=== PATIENT | female | born 1990 | race Caucasian/White ===

== ENCOUNTER 2016-05-03 18:29 | Emergency (ER) | payer BC ==
[2016-05-03 18:46] VITALS: BP 115/69; PULSE 101; RESP 18; TEMP 98.3
[2016-05-03] MEDS ORDERED: DIPH,PERTUS(ACELL)TETVAC-LF 0.5 ML VIAL IM ONE (19:00)
--- NOTE | 2016-05-03 19:05 | ED ---
General Adult HPI - General Chief complaint: Skin/Abscess/Foreign Body Stated complaint: wood in foot Time Seen by Provider: 05/03/16 18:50 Source: patient, RN notes reviewed Mode of arrival: wheelchair - History of Present Illness Initial comments: Patient is a 26-year-old female presenting to the with a chief complaint of a wooden splinter in her left foot. Patient reports that she was walking in her bathroom and the wood floor is not sealed and a piece got lodged into her plantar aspect of her foot. She states that this occured possibly half hour ago. She states she is not able to ambulate over her foot due to the wood piece sticking out and causing pain. She does not know the status of her tetanus vaccination. Patient sates that she does have full range of motion of her toes and denies any peripheral paresthesias.Patient denies any recent fever , chills, shortness of breath, chest pain, back pain, abdominal pain, nausea vomiting, numbness or tingling, dysuria or hematuria, constipation or diarrhea, headaches or visual changes, or any other current symptoms - Related Data Previous Rx's Medication Instructions Recorded Levofloxacin [Levaquin] 500 mg PO DAILY #10 tab 05/03/16 Allergies Allergy/AdvReac Type Severity Reaction Status Date / Time No Known Allergies Allergy Verified 05/03/16 18:46 Review of Systems ROS Statement: Those systems with pertinent positive or pertinent negative responses have been documented in the HPI. ROS Other: All systems not noted in ROS Statement are negative. Past Medical History Past Medical History: No Reported History History of Any Multi-Drug Resistant Organisms: None Reported Past Surgical History: No Surgical Hx Reported Past Psychological History: No Psychological Hx Reported Smoking Status: Never smoker Past Alcohol Use History: None Reported Past Drug Use History: None Reported General Exam - General Exam Comments Initial Comments: Patient is a pleasant 26-year-old female. She does not appear to be in any acute distress. General appearance: alert, in no apparent distress Head exam: Present: atraumatic, normocephalic, normal inspection Eye exam: Present: normal appearance, PERRL, EOMI. Absent: scleral icterus, conjunctival injection, periorbital swelling ENT exam: Present: normal exam, mucous membranes moist, TM's normal bilaterally , normal external ear exam Neck exam: Present: normal inspection. Absent: tenderness, meningismus, lymphadenopathy Respiratory exam: Present: normal lung sounds bilaterally. Absent: respiratory distress, wheezes, rales, rhonchi, stridor Cardiovascular Exam: Present: regular rate, normal rhythm, normal heart sounds. Absent: systolic murmur, diastolic murmur, rubs, gallop, clicks GI/Abdominal exam: Present: soft, normal bowel sounds. Absent: distended, tenderness, guarding, rebound, rigid Left Knee exam: Present: normal inspection, full ROM Lower Leg exam: Present: normal inspection, full ROM Ankle exam: Present: normal inspection, full ROM Foot/Toe exam: Present: full ROM, laceration (Evidence of the 0.5 cm thick 2 cm long wooden foreign body in the foot.). Absent: normal inspection (Evidence of a 2 cm foreign body piece avoid sticking out of the palmar aspect of the foot.) Neurovascular tendon exam: Present: no vascular compromise Gait: observed and normal Back exam: Present: normal inspection Neurological exam: Present: alert, oriented X3, CN II-XII intact Psychiatric exam: Present: normal affect, normal mood Skin exam: Present: warm, dry, intact, normal color. Absent: rash Course Vital Signs 05/03/16 18:41 Temperature 98.3 F Pulse Rate 101 H Respiratory 18 Rate Blood Pressure 115/69 O2 Sat by Pulse 98 Oximetry Procedures - Laceration Laceration #1 Site: foot (Evidence of a 0.5 cm wide 2 cm long the foreign body piece of wood sticking from the palmar aspect of the left foot.) Size (cm): 1 Description: linear Depth: simple, single layer Anesthetic Used: benzocaine 0.25% Anesthesia Technique: local infiltration Amount (mls): 4 Pre-repair: wound explored, irrigated extensively (1 L of normal saline was applied to the foot.) Type of Sutures: other (The foreign body was removed by applying pressure and it was removed in its entirety. No evidence of wood pieces within the foot. We will leave the wound open to prevent infection.) Size of Sutures: other Patient Tolerated Procedure: well, no complications Medical Decision Making - Medical Decision Making Patient is 26-year-old female with a wooden foreign body in her foot. Patient states is from her wood floor at home and she stubbed her foot into the edge of it. Patient was given local anesthesia around the foreign body and the splinter was removed in entirety. Wound was explored and irrigated extensively afterwards and no evidence of further wood pieces and the foot. Patient will be started on Levaquin for infection prevention and instructed to do warm Epson salt soaks. Patient understands treatment plan will comply. Return parameters were discussed. Disposition Clinical Impression: Foreign body in foot Disposition: HOME SELF-CARE Condition: Good Instructions: Puncture Wound (ED) Additional Instructions: Patient instructed to monitor for any signs of infection. Patient has to complete entire antibiotic prescription for the next 10 days. Follow-up with primary care provider in one to 2 days if any alarming signs or symptoms occur. Or return to the [facility] if any signs of infection or increased swelling occurs to the foot. Prescriptions: Levofloxacin [Levaquin] 500 mg PO DAILY #10 tab Referrals: Felice Sauceda MD [Primary Care Provider] - 1-2 days Time of Disposition: 19:51
--- NOTE | 2016-05-03 19:12 | XR ---
EXAMINATION TYPE: XR foot complete LT DATE OF EXAM: 05/03/2016 7:05 PM COMPARISON: NONE HISTORY: Foot pain. Wood foreign body. TECHNIQUE: 3 views FINDINGS: I see no fracture nor dislocation. Joint spaces are normal. Metatarsals are intact. I see n o radiopaque foreign body. IMPRESSION: Normal exam. No foreign body seen. A piece of wood is probably not visible on regular x-r ay.
[2016-05-03] MEDS ORDERED: LEVOFLOXACIN 500 MG TAB PO STA (19:50)
== END 2016-05-03 20:08 | disposition home or self-care (01) ==
LOC: EC 18:29
DX: S91.322A Laceration with foreign body, left foot, initial encounter (principal); W45.8XXA Other foreign body or object entering through skin, initial encounter; Z23 Encounter for immunization
CPT/HCPCS: 90471; 90715; 99283

== ENCOUNTER → 2017-01-16 | Outpatient (CLI) | payer BC ==
[2017-01-16 16:23] LABS: CHCM 34.1; HCT 41.9 % (34.0-46.0); HDW 2.23; MCH 31.5 pg (25.0-35.0); MCHC 33.5 g/dL (31.0-37.0); MCV 94.1 fL (80.0-100.0); Mean Platelet Volume 8.8; RBC 4.45 m/uL (3.80-5.40); RDW 12.7 % (11.5-15.5)
[2017-01-16 16:31] LABS: Glucose 87 mg/dL (74-99); Non-African American GFR(MDRD) >60 (>60 ml/min/1.73 sqM)
[2017-01-16 17:00] LABS: Hepatitis B Surface Ag Index 0.04
[2017-01-17 01:00] LABS: Treponemal Ab Non-Reactive (Non-Reactive)
[2017-01-17 05:48] LABS: Toxoplasma Antibody (IgG) <3.0 IU/mL (<7.2)
== END | disposition home or self-care (01) ==
LOC: LABWHC1 15:52
PROVIDERS: ATTEND Obstetrics & Gynecology
DX: Z34.01 Encounter for supervision of normal first pregnancy, first trimester (principal); Z3A.00 Weeks of gestation of pregnancy not specified
CPT/HCPCS: 36415; 82565; 82947; 85027; 86762; 86777; 86778; 86780; 86850; 86900; 86901; 87340

== ENCOUNTER → 2017-05-28 | Outpatient (CLI) | payer BC ==
[2017-05-28 11:12] LABS: HGB 12.6 gm/dL (11.4-16.0); MCH 31.4 pg (25.0-35.0); MCV 95.1 fL (80.0-100.0); Mean Platelet Volume 8.1; Platelet Count 214 k/uL (150-450); WBC 11.4 k/uL (3.8-10.6)
== END | disposition home or self-care (01) ==
LOC: LABWHC1 09:15
PROVIDERS: ATTEND Obstetrics & Gynecology
DX: Z34.02 Encounter for supervision of normal first pregnancy, second trimester (principal); Z3A.00 Weeks of gestation of pregnancy not specified
CPT/HCPCS: 36415; 82950; 85027

== ENCOUNTER 2017-09-08 11:35 | Inpatient (IN) | payer BC ==
[2017-09-11] MEDS ORDERED: CARBOPROST TROMETHAMINE 250 MCG/ML 1 ML AMP IM PRN (06:12)
[2017-09-11] MEDS ORDERED: TERBUTALINE 1 MG/ML VIAL SQ PRN (06:12)
[2017-09-11] MEDS ORDERED: LIDOCAINE 1% (PF) 10 MG/ML (30 ML SDV) SQ PRN (06:12)
[2017-09-11] MEDS ORDERED: AMPICILLIN 2,000 MG in SODIUM CHLORIDE 0.9% 100 ML IVPB STA (06:12)
[2017-09-11] MEDS ORDERED: OXYTOCIN 10 UNIT/ML 1 ML VIAL IM PRN (06:12)
[2017-09-11] MEDS ORDERED: METHYLERGONOVINE 0.2 MG/ML 1 ML AMP IM PRN (06:12)
[2017-09-11] MEDS ORDERED: OXYTOCIN 20 UNITS/1000 ML NS 1,000 ML IV SCH (06:12)
--- NOTE | 2017-09-11 06:19 | P.HPOB ---
History of Present Illness H&P Date: 09/11/17 Chief Complaint: Patient is presenting for postdates induction This patient is a pleasant 27-year-old 1 para 0 female estimated date of confinement 09/08/2017 estimated gestational age 40-3/7 weeks who presents to labor and delivery for requested induction of labor. Patient's care has been uncomplicated. Patient this time has requested induction of labor. Review of Systems Gastrointestinal: Reports heartburn Genitourinary: Reports Menstruation: Reports amenorrhea Past Medical History Past Medical History: No Reported History History of Any Multi-Drug Resistant Organisms: None Reported Past Surgical History: No Surgical Hx Reported Past Psychological History: No Psychological Hx Reported Smoking Status: Never smoker Past Alcohol Use History: None Reported Past Drug Use History: None Reported Medications and Allergies Home Medications Medication Instructions Recorded Confirmed Type Pnv,Calcium 72/Iron/Folic Acid 1 tab PO DAILY 09/11/17 09/11/17 History [ Plus Tablet] Allergies Allergy/AdvReac Type Severity Reaction Status Date / Time No Known Allergies Allergy Verified 09/11/17 06:10 Exam - Vital Signs Vital signs: Intake and Output 09/10/17 09/10/17 09/11/17 14:59 22:59 06:59 Other: Weight 63.049 kg - OBG Physical Exam Abdomen: bowel sounds normal, no diffuse tenderness, no bruit present, no guarding noted, no hepatomegaly, no splenomegaly, no mass Vulva: both: normal Vagina: normal moisture, no discharge Cervix: Cervix in the office was 2-3 cm dilated. Cervix: no lesion, no discharge Uterus: enlarged (Fundal height the office is 38 cm) Results blood work shows she is A positive, rubella immune, RPR nonreactive, hepatitis B negative, Glucola was normal, ultrasounds shows normal anatomy, group B strep was positive. Assessment and Plan Assessment: This is a pleasant 27-year-old 1 para 0 female 40-3/7 weeks gestation who is admitted to labor and delivery for requested induction of labor. Plan is induction of labor per protocol and anticipate vaginal delivery. Patient does have a positive group B strep culture and therefore will be given IV antibiotics. (1) Post-dates Current Visit: Yes Status: Acute Code(s): O48.0 - POST-TERM SNOMED Code(s): 35884271 (2) Elective induction of labor planned Current Visit: Yes Status: Acute Code(s): QAD1003 - SNOMED Code(s): 396943945 (3) Group B streptococcal carriage complicating Current Visit: Yes Status: Acute Code(s): O99.820 - STREPTOCOCCUS B CARRIER STATE COMPLICATING SNOMED Code(s): 135137660373603
[2017-09-11 06:30] LABS: HCT 39.3 % (34.0-46.0); HGB 13.3 gm/dL (11.4-16.0); MCH 31.3 pg (25.0-35.0); MCHC 33.9 g/dL (31.0-37.0); MCV 92.3 fL (80.0-100.0); Mean Platelet Volume 10.3; Platelet Count 191 k/uL (150-450); RBC 4.26 m/uL (3.80-5.40); RDW 13.1 % (11.5-15.5); WBC 10.9 k/uL (3.8-10.6)
[2017-09-11 06:39] VITALS: BMI 24.6
[2017-09-11] MEDS: LACTATED RINGERS 1,000 ML IV SCH ×2 (06:39→09:47)
[2017-09-11 06:55] LABS: Eosinophils # (M) 0.11 k/uL (0-0.7); Large Platelets Present; Monocytes # (M) 0.55 k/uL (0-1.0); Neutrophils # (M) 7.85 k/uL (1.3-7.7); Neutrophils % (M) 72 %; Nucleated Red Blood Cells 0 /100 WBC (0-0); Total Cells Counted 100
[2017-09-11] MEDS: AMPICILLIN 1,000 MG in SODIUM CHLORIDE 0.9% 50 ML IVPB SCH ×3 (07:06→15:50)
[2017-09-11] MEDS ORDERED: fentaNYL (PF) 50 MCG/ML 5 ML AMP ONE (09:18)
[2017-09-11] MEDS ORDERED: BUPIVACAINE (PF) 0.25% 30 ML VIAL ONE (09:18)
[2017-09-11] MEDS ORDERED: SODIUM CHLORIDE 0.9% 100 ML BAG ONE (09:18)
[2017-09-11] MEDS ORDERED: BUPIVACAINE (PF) 0.5% 12.5 ML, fentaNYL (PF) 200 MCG in SODIUM CHLORIDE 0.9% 83.5 ML EPIDURAL ONE (09:56)
[2017-09-11] MEDS ORDERED: WITCH HAZEL 1 EACH MED..PAD TOPICAL PRN (15:18)
[2017-09-11] MEDS ORDERED: HYDROCORTISONE 2.5% RECTAL CREAM 30 GM TUBE RECTAL PRN (15:18)
[2017-09-11] MEDS ORDERED: ZOLPIDEM 5 MG TAB PO PRN (15:18)
[2017-09-11] MEDS ORDERED: diphenhydrAMINE 25 MG CAP PO PRN (15:18)
[2017-09-11] MEDS ORDERED: diphenhydrAMINE 50 MG/ML 1 ML VIAL IVP PRN (15:18)
[2017-09-11] MEDS ORDERED: SIMETHICONE 80 MG CHEWABLE PO PRN (15:18)
[2017-09-11] MEDS ORDERED: LANOLIN CREAM 5 GM TUBE TOPICAL PRN (15:18)
[2017-09-11] MEDS ORDERED: BENZOCAINE/MENTHOL SPRAY 1 GM/SPRAY AEROSOL TOPICAL PRN (15:18)
[2017-09-11] MEDS ORDERED: BISACODYL 10 MG SUPP RECTAL PRN (15:18)
[2017-09-11] MEDS ORDERED: ACETAMINOPHEN TAB 325 MG TAB PO PRN (15:18)
[2017-09-11] MEDS: SENNOSIDES-DOCUSATE SODIUM 1 EACH TAB PO SCH ×2 (15:44→18:38)
--- NOTE | 2017-09-11 17:15 | P.PROBDLV ---
Vaginal Delivery Note - . Vaginal Delivery Note: Normal vaginal delivery viable male infant Apgars 9 and 9 delivery time is 1451 hrs. Please see dictated H&P for intimate details of this patient's admission. Brief summary this is a pleasant 27-year-old 1 para 0 female 40-3/7 weeks gestation who is admitted to labor and delivery for requested induction of labor. Patient had antibiotics given for positive group B strep culture. She has artificial rupture membranes at 3 cm dilated for clear fluid. Labor is induced with Pitocin and labor progresses normally. Patient does get an epidural for pain control. Patient's labor progresses and she pushes for approximately 1 hour and 40 minutes. At this time she does develop some mild tachycardia and maternal effort is quite diminished and for this reason she's I infiltrate the posterior perineum and a second-degree midline episiotomy is made. This facilitates delivery of the head. Mouth and nares are bulb suctioned. Is no evidence of a nuchal cord. With gentle downward traction we then have deliver the anterior and posterior shoulder and rest this infant's body. This is a vigorous viable male Apgars are 9 and 9 delivery time is 1451 hrs. After delivery of the the infant is late on the mother's abdomen and after the cord is done pulsating is doubly clamped and cut. It appears to be trivascular. The placenta is then spontaneously delivered intact. Estimated blood loss is 150 mL. Inspection of the perineum shows a second-degree laceration which is repaired with 3-0 Vicryl usual fashion. Excellent reapproximation is noted. All counts are correct 3. There are no complications. Infant and mother are stable and birthing room.
[2017-09-11] MEDS: IBUPROFEN 600 MG TAB PO PRN (18:37)
[2017-09-11 20:29] VITALS: RESP 16
[2017-09-12 00:11] VITALS: PULSE 59
--- NOTE | 2017-09-12 06:50 | P.PNOBGVD ---
Subjective - Subjective Patient reports: Reports appetite normal, Reports voiding normally, Reports pain well controlled, Reports ambulating normally : doing well Objective - Latest Vital Signs Latest vital signs: Vital Signs Temp Pulse Resp BP Pulse Ox 09/12/17 00:00 98.4 F 59 L 16 124/75 09/11/17 20:00 98.6 F 58 L 16 116/75 09/11/17 17:07 96.6 F L 75 18 130/82 98 09/11/17 16:37 52 L 17 126/75 09/11/17 16:07 72 18 142/83 09/11/17 15:52 67 18 129/78 09/11/17 15:37 70 17 132/73 09/11/17 15:22 70 16 132/73 09/11/17 15:07 96.6 F L 75 18 118/67 98 Intake and Output 09/11/17 09/11/17 09/12/17 14:59 22:59 06:59 Intake Total 33.45 Output Total 150 Balance -150 33.45 Intake: Intake, IV Titration 33.45 Amount Oxytocin 20 Units/1000 ml 33.45 Ns 1,000 ml @ 1 MILLIUNIT/MIN 3 mls/hr IV .Q24H [facility] Rx#:[id number] Output: Urine 150 Other: # Voids 1 2 - Exam Lungs: bilateral: normal Chest: Normal S1, Normal S2 Extremities: Present: normal Abdomen: Present: normal appearance, soft Uterus: Present: normal, firm - Labs Labs: Abnormal Lab Results - Last 24 Hours (Table) 09/11/17 Range/Units 06:20 Neutrophils # (Manual) 7.85 H (1.3-7.7) k/uL Assessment and Plan Assessment: Patient is resting without complaints. This is day #1. Patient wishes to go home later today. Vital signs are stable she's afebrile. Uterus is firm nontender she's having normal lochia. My impression this is a normal course. Plan is to continue routine care and discharge home later today. (1) Post-dates Current Visit: Yes Status: Acute Code(s): O48.0 - POST-TERM SNOMED Code(s): 89595243 (2) Elective induction of labor planned Current Visit: Yes Status: Acute Code(s): PSG3088 - SNOMED Code(s): 267340882 (3) Group B streptococcal carriage complicating Current Visit: Yes Status: Acute Code(s): O99.820 - STREPTOCOCCUS B CARRIER STATE COMPLICATING SNOMED Code(s): 651278671300664
--- NOTE | 2017-09-12 06:54 | P.DS ---
Providers Date of admission: 09/11/17 06:00 Expected date of discharge: 09/12/17 Attending physician: Fletcher Escalante Primary care physician: Stated None - Discharge Diagnosis(es) (1) Post-dates Current Visit: Yes Status: Acute (2) Elective induction of labor planned Current Visit: Yes Status: Acute (3) Group B streptococcal carriage complicating Current Visit: Yes Status: Acute Hospital Course: Please see dictated H&P for intimate details of this patient's admission. Brief summary this pleasant 27-year-old 1 para 0 female 40-3/7 weeks gestation admitted to labor and delivery for requested induction of labor. Patient goes on to have uncomplicated induction of labor vaginal delivery viable male . Please see dictated delivery note. day #1 patient wishes to go home. Patient's felt be stable for discharge home follow up with me in 6 weeks. Procedures: Induction of labor and normal vaginal delivery. Patient Condition at Discharge: Good Plan - Discharge Summary New Discharge Prescriptions: New Ibuprofen [Motrin] 600 mg PO Q6HR PRN #40 tab PRN Reason: Mild Pain Or Fever >= 100.5 No Action Pnv,Calcium 72/Iron/Folic Acid [ Plus Tablet] 1 tab PO DAILY Discharge Medication List Pnv,Calcium 72/Iron/Folic Acid [ Plus Tablet] 1 tab PO DAILY 09/11/17 [ History] Ibuprofen [Motrin] 600 mg PO Q6HR PRN #40 tab 09/12/17 [Rx] Follow up Appointment(s)/Referral(s): Fletcher Escalante MD [STAFF PHYSICIAN] - 10/29/17 8:45 am Patient Instructions/Handouts: Vaginal Delivery (DC) Activity/Diet/Wound Care/Special Instructions: No intercourse or anything per vagina for 6 weeks. Please call if any fever, chills, excessive vaginal bleeding, and/or abdominal pain. Discharge Disposition: HOME SELF-CARE
[2017-09-12] MEDS: IBUPROFEN 600 MG TAB PO PRN ×2 (08:53→14:57)
[2017-09-12] MEDS: SENNOSIDES-DOCUSATE SODIUM 1 EACH TAB PO SCH (08:53)
[2017-09-12 09:08] VITALS: BP 116/76; TEMP 98.5
== END 2017-09-12 15:45 | disposition home or self-care (01) | DRG 775 ==
LOC: 4FBP 09-11 06:00
PROVIDERS: ADMIT Obstetrics & Gynecology; ATTEND Obstetrics & Gynecology
PROC: 3E033VJ Introduction of Other Hormone into Peripheral Vein, Percutaneous Approach (ICD-10-PCS; principal; 2017-09-11)
PROC: 10E0XZZ Delivery of Products of Conception, External Approach (ICD-10-PCS; principal; 2017-09-11)
PROC: 0W8NXZZ Division of Female Perineum, External Approach (ICD-10-PCS; principal; 2017-09-11)
PROC: 10907ZC Drainage of Amniotic Fluid, Therapeutic from Products of Conception, Via Natural or Artificial Opening (ICD-10-PCS; principal; 2017-09-11)
PROC: 3E0R3NZ Introduction of Analgesics, Hypnotics, Sedatives into Spinal Canal, Percutaneous Approach (ICD-10-PCS; principal; 2017-09-11)
PROC: 0KQM0ZZ Repair Perineum Muscle, Open Approach (ICD-10-PCS; principal; 2017-09-11)
PROC: 00HU33Z Insertion of Infusion Device into Spinal Canal, Percutaneous Approach (ICD-10-PCS; principal; 2017-09-11)
DX: O48.0 Post-term pregnancy (principal); Z37.0 Single live birth; O99.824 Streptococcus B carrier state complicating childbirth; O70.1 Second degree perineal laceration during delivery; O76 Abnormality in fetal heart rate and rhythm complicating labor and delivery; Z3A.40 40 weeks gestation of pregnancy
CPT/HCPCS: 85025; 88307

== ENCOUNTER → 2018-07-31 | Outpatient (CLI) | payer BC ==
[2018-07-31 14:55] LABS: HCT 41.1 % (34.0-46.0); HGB 13.8 gm/dL (11.4-16.0); MCH 30.3 pg (25.0-35.0); MCHC 33.6 g/dL (31.0-37.0); MCV 90.2 fL (80.0-100.0); Mean Platelet Volume 7.9; Platelet Count 322 k/uL (150-450); RBC 4.56 m/uL (3.80-5.40); RDW 13.1 % (11.5-15.5); WBC 10.7 k/uL (3.8-10.6)
[2018-08-01 07:40] LABS: Toxoplasma Antibody (IgG) <3.0 IU/mL (<7.2); Toxoplasma Antibody (IgM) <3.0 AU/mL (<8.0)
== END | disposition home or self-care (01) ==
LOC: LABWHC1 14:29
PROVIDERS: ATTEND Obstetrics & Gynecology
DX: Z34.80 Encounter for supervision of other normal pregnancy, unspecified trimester (principal)
CPT/HCPCS: 36415; 82565; 82947; 85027; 86762; 86777; 86778; 86780; 86850; 86900; 86901; 87340

== ENCOUNTER 2019-02-16 09:06 | Inpatient (IN) | payer BC ==
[2019-02-16] MEDS ORDERED: METHYLERGONOVINE 0.2 MG/ML 1 ML AMP IM PRN (09:09)
[2019-02-16] MEDS ORDERED: CARBOPROST TROMETHAMINE 250 MCG/ML 1 ML AMP IM PRN (09:09)
[2019-02-16] MEDS ORDERED: LIDOCAINE 0.5% (PF) 5 MG/ML (50 ML SDV) SQ PRN (09:09)
[2019-02-16] MEDS ORDERED: TERBUTALINE 1 MG/ML VIAL SQ PRN (09:09)
[2019-02-16] MEDS ORDERED: AMPICILLIN 2,000 MG in SODIUM CHLORIDE 0.9% 100 ML IVPB STA (09:09)
[2019-02-16] MEDS ORDERED: OXYTOCIN 10 UNIT/ML 1 ML VIAL IM PRN (09:09)
[2019-02-16] MEDS ORDERED: LACTATED RINGERS 1,000 ML IV SCH (09:15)
[2019-02-16 09:31] VITALS: BMI 24.6
[2019-02-16 09:35] LABS: Basophils # (A) 0.1 k/uL (0-0.2); Basophils % (A) 1 %; Eosinophils # (A) 0.1 k/uL (0-0.7); Eosinophils % (A) 1 %; HCT 42.5 % (34.0-46.0); HGB 14.4 gm/dL (11.4-16.0); Lymphocytes # (A) 1.5 k/uL (1.0-4.8); Lymphocytes % (A) 15 %; MCHC 33.9 g/dL (31.0-37.0); MCV 94.5 fL (80.0-100.0); Mean Platelet Volume 7.7; Monocytes # (A) 0.5 k/uL (0-1.0); Monocytes % (A) 5 %; Neutrophils # (A) 7.3 k/uL (1.3-7.7); Neutrophils % (A) 76 %; Platelet Count 248 k/uL (150-450); RDW 13.2 % (11.5-15.5); WBC 9.6 k/uL (3.8-10.6)
--- NOTE | 2019-02-16 13:17 | P.HPOB ---
History of Present Illness H&P Date: 02/16/19 Chief Complaint: Contractions This patient is a pleasant 28-year-old 2 para 1 female estimated date of confinement 02/16/2019 estimated gestational age 40-0/7 weeks who presented to my office this morning with complaints of contractions all night. The office patient's found to be 6 cm dilated completely effaced -1 station active labor. Patient's care has been uncomplicated. She does have a positive group B strep culture. Review of Systems Genitourinary: Reports Menstruation: Reports amenorrhea Past Medical History Past Medical History: No Reported History Additional Past Medical History / Comment(s): scoliosis History of Any Multi-Drug Resistant Organisms: None Reported Past Surgical History: No Surgical Hx Reported Past Anesthesia/Blood Transfusion Reactions: No Reported Reaction Past Psychological History: No Psychological Hx Reported Smoking Status: Never smoker Past Alcohol Use History: None Reported Past Drug Use History: None Reported - Past Family History Mother Additional Family Medical History / Comment(s): Patient states her mother has POTS? She states it is some kind of cardiac disease. Medications and Allergies Home Medications Medication Instructions Recorded Confirmed Type Pnv,Calcium 72/Iron/Folic Acid 1 tab PO DAILY 09/11/17 02/16/19 History [ Plus Tablet] Fish Oil/Dha/Epa [Fish Oil 1,200 1 each PO DAILY 02/16/19 02/16/19 History mg Fish Oil] L.acidoph,Paracasei, B.lactis 1 each PO DAILY 02/16/19 02/16/19 History [Probiotic] Allergies Allergy/AdvReac Type Severity Reaction Status Date / Time No Known Allergies Allergy Verified 02/16/19 09:08 Exam Vital Signs Temp Pulse Resp BP Pulse Ox 02/16/19 09:27 97.3 F L 94 16 133/87 99 Intake and Output 02/15/19 02/16/19 02/16/19 22:59 06:59 14:59 Other: Weight 63.049 kg - OBG Physical Exam Abdomen: bowel sounds normal, no diffuse tenderness, no bruit present, no guarding noted, no hepatomegaly, no splenomegaly, no mass Vulva: both: normal Vagina: normal moisture, no discharge Cervix: no lesion (Cervix is 6 cm dilated completely effaced -1 station), no discharge Uterus: enlarged (Fundal height is appropriate for gestational age) Results blood work shows she is A positive, rubella immune, RPR nonreactive, hepatitis B negative, ultrasounds have been normal, group B strep was positive, Glucola was normal. Result Diagrams: 02/16/19 09:15 Assessment and Plan Assessment: This is a pleasant 28-year-old 2 para 1 female 40-0/7 weeks gestation who is admitted to labor and delivery in active labor. Patient has a positive group B strep culture and therefore I gave her antibiotics for approximately 3 hours and will now proceed with artificial rupture membranes. Anticipate vaginal delivery. (1) 40 weeks gestation of Current Visit: Yes Status: Acute Code(s): Z3A.40 - 40 WEEKS GESTATION OF SNOMED Code(s): 03915640 (2) Group B streptococcal carriage complicating Current Visit: No Status: Acute Code(s): O99.820 - STREPTOCOCCUS B CARRIER STATE COMPLICATING SNOMED Code(s): 190038961618128 (3) Normal labor Current Visit: Yes Status: Acute Code(s): O80 - ENCOUNTER FOR FULL-TERM UNCOMPLICATED DELIVERY; Z37.9 - OUTCOME OF DELIVERY, UNSPECIFIED SNOMED Code(s): 13039328
[2019-02-16] MEDS ORDERED: AMPICILLIN 1,000 MG in SODIUM CHLORIDE 0.9% 50 ML IVPB SCH (14:00)
[2019-02-16] MEDS ORDERED: diphenhydrAMINE 25 MG CAP PO PRN (14:20)
[2019-02-16] MEDS ORDERED: OXYTOCIN 20 UNITS/1000 ML NS 1,000 ML IV SCH (14:20)
[2019-02-16] MEDS ORDERED: LANOLIN CREAM 5 GM TUBE TOPICAL PRN (14:20)
[2019-02-16] MEDS ORDERED: WITCH HAZEL 1 EACH MED..PAD TOPICAL PRN (14:20)
[2019-02-16] MEDS ORDERED: diphenhydrAMINE 50 MG/ML 1 ML VIAL IVP PRN (14:20)
[2019-02-16] MEDS ORDERED: HYDROCORTISONE 2.5% RECTAL CREAM 30 GM TUBE RECTAL PRN (14:20)
[2019-02-16] MEDS ORDERED: BISACODYL 10 MG SUPP RECTAL PRN (14:20)
[2019-02-16] MEDS ORDERED: SIMETHICONE 80 MG CHEWABLE PO PRN (14:20)
[2019-02-16] MEDS ORDERED: ZOLPIDEM 5 MG TAB PO PRN (14:20)
[2019-02-16] MEDS ORDERED: BENZOCAINE/MENTHOL SPRAY 1 GM/SPRAY AEROSOL TOPICAL PRN (14:20)
[2019-02-16] MEDS: IBUPROFEN 600 MG TAB PO PRN ×2 (14:37→21:54)
[2019-02-16] MEDS: ACETAMINOPHEN TAB 325 MG TAB PO PRN (15:58)
--- NOTE | 2019-02-16 18:39 | P.PROBDLV ---
Vaginal Delivery Note - . Vaginal Delivery Note: Normal spontaneous vaginal delivery viable female infant Apgars 9 and 9 delivery time is 1357 hrs. Please see dictated H&P for intimate details of this patient's admission. Brief summary this is a pleasant 29-year-old 2 para 1 female 40-0/7 weeks gestation who presented to my office this morning with complaints of contractions found to be 6 cm dilated in active labor. Patient positive group B strep therefore is given IV ampicillin and a proximally 3 hours later had artificial rupture membranes for clear fluid. Patient did not request anything for pain control. Labor progresses quickly thereafter and she gets to complete. Patient pushes the head to the perineum the posterior perineum was supported. We have controlled delivery of infant's head over the intact perineum. Mouth and nares are bulb suctioned. There is no evidence of a nuchal cord. With gentle downward traction we then have deliver the anterior and posterior shoulder and rest this 's body. This is a vigorous viable female Apgars are 9 and 9 delivery time is 1357 hrs. After delivery of the the umbilical cord after it is done pulsating is clamped and cut. It appears to be trivascular. The placenta is then spontaneously delivered intact estimated blood loss 100 mL. There is a first-degree laceration was repaired with 3-0 Vicryl usual fashion excellent reapproximation is noted. All counts are correct 3. There are no complications. Infant and mother stable delivery room.
[2019-02-16] MEDS: SENNOSIDES-DOCUSATE SODIUM 1 EACH TAB PO SCH (20:12)
[2019-02-17] MEDS: IBUPROFEN 600 MG TAB PO PRN ×2 (04:32→11:41)
--- NOTE | 2019-02-17 06:30 | P.PNOBGVD ---
Subjective - Subjective Patient reports: Reports appetite normal, Reports voiding normally, Reports pain well controlled, Reports ambulating normally : doing well Objective - Latest Vital Signs Latest vital signs: Vital Signs Temp Pulse Resp BP Pulse Ox 02/16/19 23:35 98.2 F 57 L 12 86/54 98 02/16/19 20:00 97.8 F 80 12 110/73 97 02/16/19 16:19 97.7 F 70 18 110/73 02/16/19 15:49 97.3 F L 67 18 110/62 02/16/19 15:19 66 18 103/56 02/16/19 15:04 70 18 141/72 02/16/19 14:49 97.4 F L 62 18 108/67 02/16/19 14:34 76 18 106/72 02/16/19 14:19 97.0 F L 71 18 109/63 02/16/19 09:27 97.3 F L 94 16 133/87 99 Intake and Output 02/16/19 02/16/19 02/17/19 14:59 22:59 06:59 Intake Total 600 Balance 600 Intake: Intake, IV Titration 600 Amount Ampicillin 2,000 mg In 100 Sodium Chloride 0.9% 100 ml @ 200 mls/hr IVPB ONCE STA Rx#:[id number] Lactated Ringers 1,000 ml 500 @ 125 mls/hr IV .Q8H [facility] Rx#:[id number] Other: # Voids 2 2 1 Weight 63.049 kg - Exam Lungs: bilateral: normal Chest: Normal S1, Normal S2 Extremities: Present: normal Abdomen: Present: normal appearance, soft Uterus: Present: normal, firm Assessment and Plan Assessment: day #1. Patient is resting without complaints wishes to go home. Vital signs are stable she's afebrile. Uterus is firm nontender she's having normal lochia. My impression is a normal course. Plan is to continue routine care discharge home later today (1) 40 weeks gestation of Current Visit: Yes Status: Acute Code(s): Z3A.40 - 40 WEEKS GESTATION OF PRE GNANCY SNOMED Code(s): 52944672 (2) Group B streptococcal carriage complicating Current Visit: No Status: Acute Code(s): O99.820 - STREPTOCOCCUS B CARRIER STATE COMPLICATING SNOMED Code(s): 345430624388220 (3) Normal labor Current Visit: Yes Status: Acute Code(s): O80 - ENCOUNTER FOR FULL-TERM UNCOMPLICATED DELIVERY; Z37.9 - OUTCOME OF DELIVERY, UNSPECIFIED SNOMED Code(s): 20498735
--- NOTE | 2019-02-17 06:36 | P.DS ---
Providers Date of admission: 02/16/19 09:06 Expected date of discharge: 02/17/19 Attending physician: Fletcher Escalante Primary care physician: Stated None - Discharge Diagnosis(es) (1) 40 weeks gestation of Current Visit: Yes Status: Acute (2) Group B streptococcal carriage complicating Current Visit: No Status: Acute (3) Normal labor Current Visit: Yes Status: Acute Hospital Course: Please see dictated H&P for intimate details of this patient's admission. Brief summary this pleasant 29-year-old 2 para 1 female 40 weeks gestation admitted for my office in active labor. Patient was on have a vaginal delivery viable female infant. Please see dictated delivery note. day 1 patient without complaints wishes to go home felt be stable for discharge home follow up with me in 6 weeks. Procedures: Normal spontaneous vaginal delivery Patient Condition at Discharge: Good Plan - Discharge Summary New Discharge Prescriptions: New Ibuprofen [Motrin] 600 mg PO Q6HR PRN #30 tab PRN Reason: Mild Pain Or Fever >= 100.5 No Action Pnv,Calcium 72/Iron/Folic Acid [ Plus Tablet] 1 tab PO DAILY L.acidoph,Paracasei, B.lactis [Probiotic] 1 each PO DAILY Fish Oil/Dha/Epa [Fish Oil 1,200 mg Fish Oil] 1 each PO DAILY Discharge Medication List Pnv,Calcium 72/Iron/Folic Acid [ Plus Tablet] 1 tab PO DAILY 09/11/17 [History] Fish Oil/Dha/Epa [Fish Oil 1,200 mg Fish Oil] 1 each PO DAILY 02/16/19 [History] L.acidoph,Paracasei, B.lactis [Probiotic] 1 each PO DAILY 02/16/19 [History] Ibuprofen [Motrin] 600 mg PO Q6HR PRN #30 tab 02/17/19 [Rx] Follow up Appointment(s)/Referral(s): Fletcher Escalante MD [STAFF PHYSICIAN] - 6 Weeks Patient Instructions/Handouts: Vaginal Delivery (DC) Activity/Diet/Wound Care/Special Instructions: No intercourse or anything per vagina for 6 weeks. Please call if any fever, chills, excessive vaginal bleeding, and/or abdominal pain. Discharge Disposition: HOME SELF-CARE
[2019-02-17] MEDS: ACETAMINOPHEN TAB 325 MG TAB PO PRN (07:42)
[2019-02-17] MEDS: SENNOSIDES-DOCUSATE SODIUM 1 EACH TAB PO SCH (07:43)
[2019-02-17 07:59] VITALS: BP 103/67; PULSE 67; RESP 18; TEMP 98
== END 2019-02-17 15:30 | disposition home or self-care (01) | DRG 807 ==
LOC: 4FBP 09:06
PROVIDERS: ADMIT Obstetrics & Gynecology; ATTEND Obstetrics & Gynecology
PROC: 0HQ9XZZ Repair Perineum Skin, External Approach (ICD-10-PCS; principal; 2019-02-16)
PROC: 10E0XZZ Delivery of Products of Conception, External Approach (ICD-10-PCS; principal; 2019-02-16)
DX: O99.824 Streptococcus B carrier state complicating childbirth (principal); Z37.0 Single live birth; O70.0 First degree perineal laceration during delivery; M41.9 Scoliosis, unspecified; Z3A.40 40 weeks gestation of pregnancy; Z82.49 Family history of ischemic heart disease and other diseases of the circulatory system
CPT/HCPCS: 85025; 86850; 86900; 86901

== ENCOUNTER 2022-09-14 20:46 | Outpatient (CLI) | payer BC, OTHER ==
[2022-09-14] MEDS: LACTATED RINGERS 1,000 ML IV SCH (22:06)
[2022-09-14] MEDS ORDERED: BETAMET ACET-BETAMETH SOD PHOS 6 MG/ML MDV IM SCH (23:30)
[2022-09-14] MEDS ORDERED: LACTATED RINGERS 1,000 ML IV SCH (23:30)
[2022-09-15] MEDS: LACTATED RINGERS 1,000 ML IV SCH (00:26)
[2022-09-15 00:35] VITALS: RESP 16
[2022-09-15 00:36] LABS: Appearance,Urine Clear (Clear); Bilirubin,Urine Negative (Negative); Blood,Urine Negative (Negative); Color,Urine Colorless; Glucose,Urine (UA) Negative (Negative); Ketones,Urine 1+ (Negative); Leukocyte Esterase,Urine Negative (Negative); Nitrite,Urine Negative (Negative); Protein,Urine Negative (Negative); Specific Gravity,Urine 1.001 (1.001-1.035); Urobilinogen,Urine <2.0 mg/dL (<2.0)
[2022-09-15 06:23] LABS: Basophils % (A) 0 %; Eosinophils % (A) 0 %; HCT 36.7 % (34.0-46.0); HGB 12.6 gm/dL (11.4-16.0); Lymphocytes # (A) 1.1 k/uL (1.0-4.8); Lymphocytes % (A) 10 %; MCH 31.8 pg (25.0-35.0); MCHC 34.4 g/dL (31.0-37.0); MCV 92.4 fL (80.0-100.0); Mean Platelet Volume 8.8; Monocytes # (A) 0.1 k/uL (0-1.0); Monocytes % (A) 1 %; Neutrophils # (A) 9.8 k/uL (1.3-7.7); Neutrophils % (A) 88 %; Platelet Count 209 k/uL (150-450); RBC 3.98 m/uL (3.80-5.40); RDW 12.9 % (11.5-15.5); WBC 11.1 k/uL (3.8-10.6)
[2022-09-15 06:46] VITALS: BP 101/60; PULSE 64; TEMP 97.2
--- NOTE | 2022-09-15 07:08 | P.HPOB ---
History of Present Illness H&P Date: 09/15/22 Chief Complaint: Contractions This patient is a pleasant 32-year-old 3 para 2 female estimated date of confinement 11/14/2022 estimated gestational age 31 3/7 weeks who presented to labor and delivery with complaints of contractions that began yesterday afternoon. Patient attempted oral hydration and position changes however continue to have more than 6 contractions an hour presented to labor and delivery. Patient's found to be having contractions every 3-6 minutes that were mild, however she did have a fibronectin done the came back positive. Patient however now reports that she did have intercourse within 24 hours therefore this result is unreliable. Regardless, I feel is best to proceed with a course of steroids and she did receive a dose last evening. Patient's care is complicated by Covid infection that she got at approximately 17 weeks. She acquired this while on a vacation at [email or web address]. She was recommended to begin baby aspirin at that time however she declined. She has had normal growth ultrasounds and anatomy ultrasounds. otherwise is uncomplicated. Review of Systems Genitourinary: Reports as per HPI, Reports Menstruation: Reports as per HPI, Reports amenorrhea Past Medical History Past Medical History: No Reported History Additional Past Medical History / Comment(s): scoliosis; patient's had 2 previous term vaginal deliveries, one postdates History of Any Multi-Drug Resistant Organisms: None Reported Past Surgical History: No Surgical Hx Reported Past Anesthesia/Blood Transfusion Reactions: No Reported Reaction Past Psychological History: No Psychological Hx Reported Smoking Status: Never smoker Past Alcohol Use History: None Reported Past Drug Use History: None Reported - Past Family History Mother Additional Family Medical History / Comment(s): Patient states her mother has POTS? She states it is some kind of cardiac disease. Medications and Allergies Home Medications Medication Instructions Recorded Confirmed Type Pnv,Calcium 72/Iron/Folic Acid 1 tab PO DAILY 09/11/17 09/14/22 History [ Plus Tablet] Allergies Allergy/AdvReac Type Severity Reaction Status Date / Time No Known Allergies Allergy Verified 09/14/22 20:51 Exam Vital Signs Temp Pulse Resp BP Pulse Ox 09/15/22 04:30 97.2 F L 64 16 101/60 09/15/22 00:33 97.7 F 72 16 102/63 09/14/22 20:51 98.9 F 104 H 16 117/73 100 Intake and Output 09/14/22 09/15/22 09/15/22 22:59 06:59 14:59 Other: # Voids 5 Weight 63.049 kg 63.049 kg - OBG Physical Exam Abdomen: bowel sounds normal, no diffuse tenderness, no bruit present, no guarding noted, no hepatomegaly, no splenomegaly, no mass Vulva: both: normal Vagina: normal moisture, no discharge Cervix: no lesion (Cervix is closed and thick.), no discharge Uterus: enlarged Results labs show she is A positive, rubella immune, RPR nonreactive, HIV is nonreactive, hepatitis B and C are negative, ultrasounds of shown normal anatomy and growth. Result Diagrams: 09/15/22 06:09 Abnormal Lab Results - Last 24 Hours (Table) 09/15/22 09/15/22 Range/Units 00:20 06:09 WBC 11.1 H (3.8-10.6) k/uL Neutrophils # 9.8 H (1.3-7.7) k/uL Urine Ketones 1+ H (Negative) Assessment and Plan Assessment: This is a pleasant 32-year-old 3 para 2 female 31-3/7 weeks gestation with contractions and appropriate for gestational age. Patient did have a positive fibronectin, however as above I was unaware the patient had had intercourse within 24 hours of collection and therefore this is unreliable. I did discuss this with the patient and I elected to proceed with Celestone t reatment she was still having contractions initially despite IV fluids. Overnight however the contractions have subsided and I did check her cervix again this morning is still closed. Plan is to repeat Celestone this morning discharge home on pelvic rest. Follow up with me on Friday and call if she has any concerns a recurrence of her symptoms. (1) 31 to 32 weeks gestation of Current Visit: Yes Status: Acute Code(s): WFH7975 - SNOMED Code(s): 403751846 (2) contractions Current Visit: Yes Status: Acute Code(s): O47.00 - FALSE LABOR BEFORE 37 COMPLETED WEEKS OF GEST, UNSP TRI SNOMED Code(s): 484966459 (3) Positive fibronectin at 22 weeks to 34 weeks gestation Current Visit: Yes Status: Acute Code(s): O09.899 - SUPERVISION OF OTHER HIGH RISK PREGNANCIES, UNSP TRIMESTER; R87.89 - OTH ABNORMAL FINDINGS IN SPECMN FROM FEMALE GENITAL ORGANS SNOMED Code(s): 282221317
--- NOTE | 2022-09-15 07:12 | P.DS ---
Providers Date of admission: 09/14/22 22:56 Expected date of discharge: 09/15/22 Attending physician: Fletcher Escalante Primary care physician: Stated None - Discharge Diagnosis(es) (1) 31 to 32 weeks gestation of Current Visit: Yes Status: Acute (2) contractions Current Visit: Yes Status: Acute (3) Positive fibronectin at 22 weeks to 34 weeks gestation Current Visit: Yes Status: Acute Hospital Course: Please see dictated H&P for details this patient's admission. Brief summary this 32-year-old 3 para 2 female 31-3/7 weeks gestation admitted to labor and delivery with complaints of contractions. Patient is admitted and given Celestone treatment, IV hydration, and bedrest with resolution of her symptoms. Repeat pelvic exam shows cervix to be closed. She did receive a course of Celestone in the event she were to proceed with delivery. Patient's follow up with me on Friday as scheduled Patient Condition at Discharge: Good Plan - Discharge Summary New Discharge Prescriptions: No Action Pnv,Calcium 72/Iron/Folic Acid [ Plus Tablet] 1 tab PO DAILY Discharge Medication List Pnv,Calcium 72/Iron/Folic Acid [ Plus Tablet] 1 tab PO DAILY 09/11/17 [History] Follow up Appointment(s)/Referral(s): Fletcher Escalante MD [STAFF PHYSICIAN] - 09/20/22 (Please see me Friday in the office as scheduled) Patient Instructions/Handouts: Labor (DC) Activity/Diet/Wound Care/Special Instructions: No intercourse or strenuous activities. Please see me Friday as instructed. Return to labor and delivery with concerns of increasing contractions. Discharge Disposition: HOME SELF-CARE
--- NOTE | 2022-09-15 07:20 | P.MSEPDOC ---
Presenting Problems - Arrival Data Date of Arrival on Unit: 09/14/22 Time of Arrival on Unit: 20:46 Mode of Transport: Ambulatory - Complaint OB-Reason for Admission/Chief Complaint: Possible Onset of Labor Comment: Patient of Dr. Escalante presents to triage with c/o contractions since 1800. every 3 minutes. Contractions are "mild and not painful as much as squeezing feeling.". , [place] 31.2. ALIVIA 11/14/2022. Denies bleeding or leakage of fluid and has not had any. complications with this . Medical History - Information : 3 Para: 2 Term: 2 : 0 Abortions: Spontaneous or Elective: 0 Number of Living Children: 2 - Gestational Age Gestational Age by ALIVIA (wks/days): 31 Weeks and 3 Days Review of Systems - Review of Systems Constitutional: No problems Breast: Right, Pain ENT: No problems Cardiovascular: No problems Respiratory: No problems Gastrointestinal: No problems Genitourinary: No problems Musculoskeletal: No problems Neurological: No problems Skin: No problems Comment: c/o clogged milk duct on inner lower right breast. mild pain and some redness. Patient has been massaging the area and using hotpacks at home. Vital Signs - Temperature Temperature: 97.2 F Temperature Source: Temporal Artery Scan - Pulse Pulse Oximetery Pulse Rate: 64 Pulse Assessment Method: Auscultation - Respirations Respiratory Rate: 16 Oxygen Delivery Method: Room Air - Blood Pressure Right Arm Blood Pressure: 101/60 Blood Pressure Mean: 73 Blood Pressure Source: Automatic Cuff Medical Screen Scoring - Cervical Exam Dilation (cm): 0 Effacement (%): 0 Station: -2 Membranes: Intact - Uterine Contractions Frequency From (mins): 3 Frequency To (mins): 6 Duration From (seconds): 70 Duration To (seconds): 90 Intensity: Mild Resting: Soft to palpation - Assessment - Baby A Baseline FHR: 150 Heart Rate - NICHD Category: Category I (Normal) NST: Reactive Physician Notification - Physician Notified Physician Notified Date: 09/14/22 Physician Notified Time: 22:39 Physician: Fletcher Escalante New Order Received: Yes - Notification Comment Comment: Called Dr. Escalante updated on patient lab results. Orders to keep patient. overnight for observation. Oders given for stay. Maternal Triage Index - Maternal Triage Index Presenting for scheduled procedure w/no complaint: No - Stat/Priority 1 Stat Priority 1: No - Urgent/Priority 2 Urgent Priority 2: Yes Provider Notified: Fletcher Escalante Provider Notified Time: 21:25 Criteria Met for Priority 2: <34 weeks c/o uterine ctx - Prompt/Priority 3 Prompt Priority 3: No - Non-Urgent/Priority 4 Non-Urgent Priority 4: No Disposition - Disposition OB Disposition: Admit, LDRP Suite Transferred to:: Suite 11 I agree with the RN Medical Screening Exam: Yes Case reviewed; plan agreed upon as documented in EMR&OBIX.: Yes Diagnosis: RELATED CONDITIONS, UNSPECIFIED, THIRD TRIMESTER
[2022-09-15] MEDS ORDERED: BETAMET ACET-BETAMETH SOD PHOS 6 MG/ML MDV IM SCH (11:15)
== END 2022-09-15 07:11 ==
LOC: FBPOP 20:46 → 4FBP 22:56 → UNDOADMOB 22:56 → INTOOBSV 09-15 07:11 → FBPOP 09-15 07:11 → OBSVTOIN 09-15 07:11 → UNDODISIN 09-15 11:45 → UNDODISOB 09-15 11:45
PROVIDERS: ATTEND Obstetrics & Gynecology
DX: O26.893 Other specified pregnancy related conditions, third trimester (principal); Z3A.31 31 weeks gestation of pregnancy
CPT/HCPCS: 59025; 99214; 96360; 82731; 85025; 81003; J0702; 96361; 99213

== ENCOUNTER 2022-11-13 16:40 | Inpatient (IN) | payer OTHER ==
[2022-11-13] MEDS ORDERED: OXYTOCIN 30 UNITS/500 ML NS 30 UNIT in SALINE 1 500ML.BAG IV SCH ×2 (17:30→22:00)
[2022-11-13] MEDS ORDERED: AMPICILLIN 2,000 MG in SODIUM CHLORIDE 0.9% 100 ML IVPB STA (17:30)
[2022-11-13] MEDS ORDERED: METHYLERGONOVINE 0.2 MG/ML 1 ML AMP IM PRN (17:30)
[2022-11-13] MEDS ORDERED: CARBOPROST TROMETHAMINE 250 MCG/ML 1 ML AMP IM PRN (17:30)
[2022-11-13] MEDS ORDERED: miSOPROStoL 200 MCG TAB PO PRN (17:30)
[2022-11-13] MEDS ORDERED: LACTATED RINGERS 1,000 ML IV SCH (17:30)
[2022-11-13] MEDS ORDERED: TERBUTALINE 1 MG/ML VIAL SQ PRN (17:30)
[2022-11-13] MEDS ORDERED: OXYTOCIN 10 UNIT/ML 1 ML VIAL IM PRN (17:30)
[2022-11-13] MEDS ORDERED: TRANEXAMIC 1,000 MG/100ML-NACL 1,000 MG in EMPTY BAG 1 BAG IV PRN (17:30)
[2022-11-13] MEDS ORDERED: LIDOCAINE 0.5% (PF) 5 MG/ML (50 ML SDV) SQ PRN (17:30)
--- NOTE | 2022-11-13 18:41 | P.HPOB ---
History of Present Illness H&P Date: 11/13/22 Chief Complaint: Normal labor 32-year-old presents at 39 weeks and 6 days in active labor. Her cervix is 5 centers dilated, 80% effaced, -1 station. She is sonu every 2-5 minutes. heart tones are 140 with moderate variability and reactive. Review of Systems All systems: negative Constitutional: Denies chills, Denies fever Eyes: denies blurred vision, denies pain Ears, nose, mouth and throat: Denies headache, Denies sore throat Cardiovascular: Denies chest pain, Denies shortness of breath Respiratory: Denies cough Gastrointestinal: Denies abdominal pain, Denies diarrhea, Denies nausea, Denies vomiting Genitourinary: Denies dysuria, Denies hematuria Musculoskeletal: Denies myalgias Integumentary: Denies pruritus, Denies rash Neurological: Denies numbness, Denies weakness Psychiatric: Denies anxiety, Denies depression Endocrine: Denies fatigue, Denies weight change Past Medical History Past Medical History: No Reported History Additional Past Medical History / Comment(s): scoliosis; patient's had 2 previous term vaginal deliveries, one postdates History of Any Multi-Drug Resistant Organisms: None Reported Past Surgical History: No Surgical Hx Reported Past Anesthesia/Blood Transfusion Reactions: No Reported Reaction Smoking Status: Never smoker - Past Family History Mother Additional Family Medical History / Comment(s): Patient states her mother has POTS? She states it is some kind of cardiac disease. Medications and Allergies Home Medications Medication Instructions Recorded Confirmed Type Pnv,Calcium 72/Iron/Folic Acid 1 tab PO DAILY 09/11/17 11/13/22 History [ Plus Tablet] Allergies Allergy/AdvReac Type Severity Reaction Status Date / Time No Known Allergies Allergy Verified 11/13/22 17:25 Exam Osteopathic Statement: *. No significant issues noted on an osteopathic structural exam other than those noted in the History and Physical/Consult. Intake and Output 11/13/22 11/13/22 11/13/22 06:59 14:59 22:59 Other: Weight 66.224 kg Heart: Regular rate and rhythm Lungs: Clear to auscultation bilaterally Abdomen: Soft, nontender Extremities: Negative Homans sign Assessment and Plan (1) Normal labor Current Visit: No Status: Acute Code(s): O80 - ENCOUNTER FOR FULL-TERM UNCOMPLICATED DELIVERY; Z37.9 - OUTCOME OF DELIVERY, UNSPECIFIED SNOMED Code(s): 53183063 Plan: 1. Admit to family place 2. Expectant management 3. Anticipate normal vaginal delivery
[2022-11-13 18:44] LABS: Basophils % (A) 0 %; Eosinophils % (A) 0 %; HCT 36.9 % (34.0-46.0); HGB 12.5 gm/dL (11.4-16.0); Lymphocytes # (A) 2.2 k/uL (1.0-4.8); Lymphocytes % (A) 16 %; MCH 30.8 pg (25.0-35.0); MCHC 33.8 g/dL (31.0-37.0); MCV 91.2 fL (80.0-100.0); Mean Platelet Volume 11.1; Monocytes # (A) 0.5 k/uL (0-1.0); Monocytes % (A) 4 %; Neutrophils # (A) 10.4 k/uL (1.3-7.7); Neutrophils % (A) 78 %; Platelet Count 205 k/uL (150-450); RBC 4.05 m/uL (3.80-5.40); RDW 13.5 % (11.5-15.5); WBC 13.3 k/uL (3.8-10.6)
[2022-11-13] MEDS ORDERED: AMPICILLIN 1,000 MG in SODIUM CHLORIDE 0.9% 50 ML IVPB SCH (21:30)
[2022-11-13] MEDS ORDERED: BENZOCAINE/MENTHOL SPRAY 1 GM/SPRAY AEROSOL TOPICAL PRN (21:58)
[2022-11-13] MEDS ORDERED: HYDROCORTISONE 2.5% RECTAL CREAM 30 GM TUBE RECTAL PRN (21:58)
[2022-11-13] MEDS ORDERED: diphenhydrAMINE 50 MG/ML 1 ML VIAL IVP PRN ×2 (21:58)
[2022-11-13] MEDS ORDERED: ZOLPIDEM 5 MG TAB PO PRN (21:58)
[2022-11-13] MEDS ORDERED: diphenhydrAMINE 50 MG CAP PO PRN (21:58)
[2022-11-13] MEDS ORDERED: LANOLIN CREAM 5 GM TUBE TOPICAL PRN (21:58)
[2022-11-13] MEDS ORDERED: SIMETHICONE 80 MG CHEWABLE PO PRN (21:58)
[2022-11-13] MEDS ORDERED: diphenhydrAMINE 25 MG CAP PO PRN (21:58)
--- NOTE | 2022-11-13 21:58 | P.PROBDLV ---
Vaginal Delivery Note - . Vaginal Delivery Note: 32-year-old presents at 39 weeks and 6 days in active labor. Her cervix was 5 cm dilated, 80% effaced, -1 station. She is sonu every 2-4 minutes. Heart tones 135 with moderate variability and reactive. Patient was admitted to [facility] for expectant management. She had intermittent monitoring and position changes and she took a shower for pain control. When she was 8 cm dilated at 2108, amniotomy was performed and clear fluid noted. She progressed to complete at 2127. She pushed, delivered a viable female infant over intact perineum at 2140. Head delivered OA, nuchal cord 1 easily reduced, anterior shoulder delivered gentle downward guidance followed by posterior shoulder and rest of body. Nose and mouth bulb suctioned, cord clamped and cut, placed mother's abdomen. Apgars 8, 9, weight 8 pounds 14.2 ounces. Placenta delivered spontaneously, intact with three-vessel cord at 2144. Vagina, cervix, perineum inspected. First-degree midline laceration was repaired with 3-0 Vicryl. Estimated blood loss 150 mL. Mother and baby in stable condition.
[2022-11-13] MEDS: IBUPROFEN 600 MG TAB PO PRN (22:07)
[2022-11-14] MEDS: IBUPROFEN 600 MG TAB PO PRN ×3 (04:06→19:34)
[2022-11-14 05:14] LABS: Basophils % (A) 0 %; Eosinophils # (A) 0.1 k/uL (0-0.7); Eosinophils % (A) 1 %; HCT 34.6 % (34.0-46.0); HGB 11.5 gm/dL (11.4-16.0); Lymphocytes # (A) 1.7 k/uL (1.0-4.8); Lymphocytes % (A) 10 %; MCH 30.5 pg (25.0-35.0); MCHC 33.3 g/dL (31.0-37.0); MCV 91.5 fL (80.0-100.0); Mean Platelet Volume 10.7; Monocytes # (A) 0.8 k/uL (0-1.0); Monocytes % (A) 5 %; Neutrophils # (A) 14.2 k/uL (1.3-7.7); Neutrophils % (A) 83 %; Platelet Count 198 k/uL (150-450); RBC 3.78 m/uL (3.80-5.40); RDW 13.5 % (11.5-15.5)
--- NOTE | 2022-11-14 06:40 | P.PNOBGVD ---
Subjective - Subjective Patient reports: Reports appetite normal, Reports voiding normally, Reports pain well controlled, Reports ambulating normally : doing well Objective - Latest Vital Signs Latest vital signs: Vital Signs Temp Pulse Resp BP 11/14/22 04:00 98.2 F 61 16 102/63 11/13/22 23:58 76 16 110/63 11/13/22 23:28 57 L 16 112/67 11/13/22 22:58 57 L 16 116/81 11/13/22 22:43 60 16 112/64 11/13/22 22:28 60 16 109/68 11/13/22 22:13 55 L 16 116/69 11/13/22 21:58 97.8 F 61 16 113/57 11/13/22 18:59 95.8 F L 99 16 122/75 11/13/22 18:33 95.8 F L 99 16 122/75 Intake and Output 11/13/22 11/13/22 11/14/22 14:59 22:59 06:59 Output Total 150 550 Balance -150 -550 Output: Estimated Blood Loss 150 Output, Quantitative 550 Blood Loss Other: # Voids 1 Weight 66.224 kg - Exam Lungs: bilateral: normal Chest: Normal S1, Normal S2 Extremities: Present: normal Abdomen: Present: normal appearance, soft Uterus: Present: normal, firm - Labs Labs: Abnormal Lab Results - Last 24 Hours (Table) 11/13/22 11/14/22 Range/Units 18:10 04:48 WBC 13.3 H 17.0 H (3.8-10.6) k/uL RBC 3.78 L (3.80-5.40) m/uL Neutrophils # 10.4 H 14.2 H (1.3-7.7) k/uL Assessment and Plan Assessment: day number #1. Patient is resting without complaints. Vital signs are stable she's afebrile. Uterus is firm nontender and she is having normal lochia CBC is pending. Plan today is to continue care discharge home tomorrow (1) Normal vaginal delivery Current Visit: Yes Status: Acute Code(s): O80 - ENCOUNTER FOR FULL-TERM UNCOMPLICATED DELIVERY SNOMED Code(s): 28731379
[2022-11-14] MEDS: SENNOSIDES-DOCUSATE SODIUM 1 EACH TAB PO SCH ×2 (08:49→19:34)
[2022-11-14] MEDS: ACETAMINOPHEN TAB 325 MG TAB PO PRN ×3 (08:54→22:53)
--- NOTE | 2022-11-14 17:12 | P.PN ---
Progress Note - Text Progress Note Date: 11/14/22 Patient CBC was normal today. She is requesting to go home later tonight after her baby's time. Vital signs are stable and she is afebrile. Uterus is firm nontender and she is having normal lochia. Patient's felt to be stable for discharge home follow up with me in 6 weeks.
--- NOTE | 2022-11-14 17:15 | P.DS ---
Providers Date of admission: 11/13/22 17:31 Expected date of discharge: 11/14/22 Attending physician: Fletcher Escalante Primary care physician: Stated None - Discharge Diagnosis(es) (1) Normal vaginal delivery Current Visit: Yes Status: Acute Hospital Course: Please see dictated H&P and delivery note on this patient's admission and delivery. Brief summary this is a pleasant 32-year-old 3 para 2 female 39-6/7 weeks gestation admitted to labor and delivery in active labor. Patient quickly goes on to have a vaginal delivery viable female infant. Please see dictated delivery note. day #1 patient's feeling well wishes to go home. Patient's felt be stable for discharge home follow up with me in 6 weeks. Procedures: Normal spontaneous vaginal delivery Patient Condition at Discharge: Good Plan - Discharge Summary New Discharge Prescriptions: New Ibuprofen [Motrin] 600 mg PO Q6HR PRN #40 tab PRN Reason: Mild Pain (Scale 1 To 3) No Action Pnv,Calcium 72/Iron/Folic Acid [ Plus Tablet] 1 tab PO DAILY Discharge Medication List Pnv,Calcium 72/Iron/Folic Acid [ Plus Tablet] 1 tab PO DAILY 09/11/17 [History] Ibuprofen [Motrin] 600 mg PO Q6HR PRN #40 tab 11/14/22 [Rx] Follow up Appointment(s)/Referral(s): Flecther Escalante MD [STAFF PHYSICIAN] - 12/25/22 10:30 am Patient Instructions/Handouts: Vaginal Delivery (DC) Activity/Diet/Wound Care/Special Instructions: No intercourse or anything per vagina for 6 weeks. Please call if any fever, chills, excessive vaginal bleeding, and/or abdominal pain Discharge Disposition: HOME SELF-CARE
[2022-11-14 17:25] VITALS: BP 107/69
[2022-11-14 19:43] VITALS: PULSE 69; RESP 18; TEMP 98.6
--- NOTE | 2022-11-15 07:24 | P.MSEPDOC ---
Presenting Problems - Arrival Data Date of Arrival on Unit: 11/13/22 Time of Arrival on Unit: 16:40 Mode of Transport: Ambulatory - Complaint OB-Reason for Admission/Chief Complaint: Possible Onset of Labor Medical History - Information : 3 Para: 2 Term: 2 : 0 Abortions: Spontaneous or Elective: 0 Number of Living Children: 2 - Gestational Age Gestational Age by ALIVIA (wks/days): 39 Weeks and 6 Days - History Comment: history gbs+ with two previous pregnancies Review of Systems - Review of Systems Constitutional: No problems Breast: No problems ENT: No problems Cardiovascular: No problems Respiratory: No problems Gastrointestinal: No problems Genitourinary: No problems Musculoskeletal: No problems Neurological: No problems Skin: No problems Vital Signs - Temperature Temperature: 98.6 F Temperature Source: Oral - Pulse Right Sitting Pulse Rate: 69 Pulse Assessment Method: Pulse Oximetry - Respirations Respiratory Rate: 18 Oxygen Delivery Method: Room Air O2 Sat by Pulse Oximetry: 97 - Blood Pressure Right Arm Blood Pressure: 107/69 Blood Pressure Mean: 81 Blood Pressure Source: Automatic Cuff Medical Screen Scoring - Cervical Exam Dilation (cm): 5 Effacement (%): 80 Station: -2 Membranes: Intact - Uterine Contractions Frequency From (mins): 2 Frequency To (mins): 3 Duration From (seconds): 60 Duration To (seconds): 80 Intensity: Strong Resting: Soft to palpation - Assessment - Baby A Baseline FHR: 150 Heart Rate - NICHD Category: Category I (Normal) NST: Reactive Physician Notification - Physician Notified Physician Notified Date: 11/13/22 Physician Notified Time: 17:20 Physician: Jannet Coehn New Order Received: Yes Maternal Triage Index - Prompt/Priority 3 Prompt Priority 3: Yes Criteria Met for Priority 3: regular contractions, 5cm, reactive nst Disposition - Disposition OB Disposition: Admit, LDRP Suite Discharge Date: 11/14/22 Discharge Time: 23:00 I agree with the RN Medical Screening Exam: Yes Case reviewed; plan agreed upon as documented in EMR&OBIX.: Yes Diagnosis: ENCOUNTER FOR FULL-TERM UNCOMPLICATED DELIVERY
== END 2022-11-14 23:00 | disposition home or self-care (01) | DRG 807 ==
LOC: FBPOP 16:40 → 4FBP 17:31
PROVIDERS: ADMIT Obstetrics & Gynecology; ATTEND Obstetrics & Gynecology
PROC: 10E0XZZ Delivery of Products of Conception, External Approach (ICD-10-PCS; principal; 2022-11-13)
PROC: 10907ZC Drainage of Amniotic Fluid, Therapeutic from Products of Conception, Via Natural or Artificial Opening (ICD-10-PCS; principal; 2022-11-13)
PROC: 0HQ9XZZ Repair Perineum Skin, External Approach (ICD-10-PCS; principal; 2022-11-13)
DX: O99.354 Diseases of the nervous system complicating childbirth (principal); M41.9 Scoliosis, unspecified; O69.81X0 Labor and delivery complicated by cord around neck, without compression, not applicable or unspecified; O70.0 First degree perineal laceration during delivery; Z3A.39 39 weeks gestation of pregnancy; Z37.0 Single live birth
CPT/HCPCS: 59025; 85025; 86850; 86900; 86901; 99213